=== PATIENT | female | born 1955 | race Two or more races ===

== ENCOUNTER 2019-05-16 13:55 | Outpatient (CLI) | payer OTHER | END 2019-05-16 23:59 | disposition home or self-care (01) | LOC: WOU 13:55 | PROVIDERS: ATTEND Surgery | DX: T81.31XA Disruption of external operation (surgical) wound, not elsewhere classified, initial encounter (principal); C64.1 Malignant neoplasm of right kidney, except renal pelvis; E66.9 Obesity, unspecified; Z68.35 Body mass index [BMI] 35.0-35.9, adult; M62.50 Muscle wasting and atrophy, not elsewhere classified, unspecified site; Z90.5 Acquired absence of kidney | CPT/HCPCS: 11042 ==

== ENCOUNTER 2019-05-23 13:55 | Outpatient (CLI) | payer OTHER | END 2019-05-23 23:59 | disposition home or self-care (01) | LOC: WOU 13:55 | PROVIDERS: ATTEND Surgery | DX: T81.31XA Disruption of external operation (surgical) wound, not elsewhere classified, initial encounter (principal); C64.1 Malignant neoplasm of right kidney, except renal pelvis; E66.9 Obesity, unspecified; Z68.35 Body mass index [BMI] 35.0-35.9, adult; M62.50 Muscle wasting and atrophy, not elsewhere classified, unspecified site | CPT/HCPCS: 11042 ==